=== PATIENT | female | born 1985 | race Caucasian/White ===

== ENCOUNTER 2017-07-31 01:05 | Emergency (ER) | payer OTHER ==
[~2017-07-31] VITALS: Ht 162.6 cm; Wt 56.8 kg
[2017-07-31] MEDS ORDERED: KLON1TAB PO (01:16)
[2017-07-31] MEDS ORDERED: PERCOCET 5MG/325MG TAB PO ONE (01:30)
[2017-07-31] MEDS ORDERED: diphenhydrAMINE INJ 50MG/ML VIAL (J1200) IM ONE (02:15)
[2017-07-31] MEDS ORDERED: MORPHINE 10 MG/ML 1ML VIAL IM ONE (02:15)
[2017-07-31] MEDS ORDERED: PERC5TAB12 PO (02:16)
[2017-07-31 02:50] VITALS: BP 102/67
--- NOTE | 2017-07-31 05:56 | REP ---
Clinical: Trauma . Technique: AP, lateral, bilateral oblique views. Findings: No acute fracture or dislocation. Skeletal structures and joint spaces are intact and normal. Ankle mortise appears stable. No subcutaneous emphysema or radiodense foreign body. Impression: Normal right ankle radiograph series. Signed by Duane Hansen MD 07/31/2017 05:47 A
--- NOTE | 2017-07-31 05:57 | REP ---
Clinical: Trauma. Technique: AP, lateral, bilateral oblique views right foot . Findings: The osseous structures and joint spaces are intact and normal. There is no evidence for acute fracture or dislocation. Surrounding soft tissues are unremarkable. No subcutaneous emphysema or radiodense foreign body. Impression: Normal right foot exam . No acute fracture or dislocation. Signed by Duane Hansen MD 07/31/2017 05:48 A
--- NOTE | 2017-07-31 05:58 | REP ---
Clinical: Trauma. Technique: AP, lateral, bilateral oblique views left hand . Findings: The osseous structures and joint spaces are intact and normal. There is no evidence for acute fracture or dislocation. Surrounding soft tissues are unremarkable. No subcutaneous emphysema or radiodense foreign body. Impression: Normal left hand series . No acute fracture or dislocation. Signed by Duane Hansen MD 07/31/2017 05:49 A
--- NOTE | 2017-07-31 05:59 | REP ---
Clinical: Trauma. Technique: AP, lateral, bilateral oblique views. Findings: The carpal bones, surrounding osseous structures, soft tissues, and joint spaces are normal. There is no evidence for acute fracture or dislocation. No subcutaneous emphysema or radiodense foreign body. Impression: Normal left wrist series. No acute fracture or dislocation Signed by Duane Hansen MD 07/31/2017 05:51 A
== END 2017-07-31 03:03 | disposition home or self-care (01) ==
LOC: M ED 01:05
DX: S93.401A Sprain of unspecified ligament of right ankle, initial encounter (principal); S63.502A Unspecified sprain of left wrist, initial encounter; W10.8XXA Fall (on) (from) other stairs and steps, initial encounter; Y92.098 Other place in other non-institutional residence as the place of occurrence of the external cause; Y93.02 Activity, running; Y99.8 Other external cause status; R00.0 Tachycardia, unspecified; Z95.0 Presence of cardiac pacemaker; F17.200 Nicotine dependence, unspecified, uncomplicated; Z88.5 Allergy status to narcotic agent; Z88.8 Allergy status to other drugs, medicaments and biological substances; Z88.1 Allergy status to other antibiotic agents; Z79.899 Other long term (current) drug therapy
CPT/HCPCS: 73110; 73130; 73610; 73630; 96372; 99283; J1200

== ENCOUNTER 2017-08-05 08:29 | Emergency (ER) | payer OTHER ==
[~2017-08-05] VITALS: Ht 162.6 cm; Wt 56.7 kg
[~2017-08-05 08:29] MED LIST: KLON1TAB PO; PERC5TAB12 PO
[2017-08-05] MEDS ORDERED: KETOROLAC 30 MG/ML VIAL (J1885) IM ONE (09:30)
[2017-08-05] MEDS ORDERED: NAPR500T3 PO (11:04)
[2017-08-05 11:18] VITALS: BP 102/74
--- NOTE | 2017-08-05 12:07 | REP ---
REASON: Pain after tripping incident. FINDINGS: No acute fracture or destructive osseous lesion. Signed by Mohsen Sullivan DO 08/05/2017 11:17 A
[2017-08-06] MEDS ORDERED: DICL75TA PO (07:05)
== END 2017-08-05 11:29 | disposition home or self-care (01) ==
LOC: M ED 08:29
DX: S80.11XA Contusion of right lower leg, initial encounter (principal); W01.0XXA Fall on same level from slipping, tripping and stumbling without subsequent striking against object, initial encounter; Y92.89 Other specified places as the place of occurrence of the external cause; Y93.89 Activity, other specified; Y99.8 Other external cause status; Z88.1 Allergy status to other antibiotic agents; Z88.5 Allergy status to narcotic agent; Z88.8 Allergy status to other drugs, medicaments and biological substances; F17.210 Nicotine dependence, cigarettes, uncomplicated
CPT/HCPCS: 73590; 96372; 99284; J1885

== ENCOUNTER 2017-08-06 05:07 | Emergency (ER) | payer OTHER ==
[~2017-08-06] VITALS: Ht 162.6 cm; Wt 56.8 kg
[2017-08-06 05:07] VITALS: BP 120/69
[~2017-08-06 05:07] MED LIST changes: +NAPR500T3 PO
[2017-08-06] MEDS ORDERED: DICL75TA PO (07:05)
== END 2017-08-06 07:37 | disposition home or self-care (01) ==
LOC: M ED 05:07
DX: Z76.5 Malingerer [conscious simulation] (principal); S90.31XA Contusion of right foot, initial encounter; S80.01XA Contusion of right knee, initial encounter; Z72.0 Tobacco use; W01.198A Fall on same level from slipping, tripping and stumbling with subsequent striking against other object, initial encounter; Y92.89 Other specified places as the place of occurrence of the external cause; Y93.01 Activity, walking, marching and hiking; Y99.9 Unspecified external cause status